=== PATIENT | male | born 1980 | race Caucasian/White ===

== ENCOUNTER 2018-09-23 15:31 | Emergency (ER) | payer SELFPAY | END 2018-09-23 16:15 | disposition left against medical advice (07) | LOC: EMS 15:42 | DX: R51 Headache (principal); Z53.21 Procedure and treatment not carried out due to patient leaving prior to being seen by health care provider ==

== ENCOUNTER 2019-01-29 10:26 | Emergency (ER) | payer MEDICAID ==
[~2019-01-29] VITALS: Ht 172.7 cm; Wt 72.7 kg
[2019-01-29] MEDS ORDERED: DOXYCYCLINE HYCLATE 100 MG CAPSULE PO ONE (11:15)
[2019-01-29] MEDS ORDERED: ACETAMINOPHEN 500 MG TABLET PO ONE (11:15)
[2019-01-29 11:42] VITALS: BP 113/70
== END 2019-01-29 12:30 | disposition home or self-care (01) ==
LOC: EMS 10:27
DX: L03.116 Cellulitis of left lower limb (principal); F17.210 Nicotine dependence, cigarettes, uncomplicated
CPT/HCPCS: 99406

== ENCOUNTER 2021-12-22 12:30 | Emergency (ER) | payer MEDICAID, OTHER ==
[~2021-12-22] VITALS: Ht 172.7 cm; Wt 75.9 kg
[2021-12-22 12:49] VITALS: BP 115/67
[2021-12-22] MEDS ORDERED: DOXY-354 PO (13:21)
[2021-12-22] MEDS ORDERED: ACET-3385 PO (13:21)
[2021-12-22] MEDS ORDERED: DOXYCYCLINE HYCLATE 100 MG TABLET PO ONE (13:30)
[2021-12-22] MEDS ORDERED: ACETAMINOPHEN 500 MG TABLET PO ONE (13:30)
== END 2021-12-22 14:09 | disposition home or self-care (01) ==
LOC: EMS 12:34
DX: L03.115 Cellulitis of right lower limb (principal)
CPT/HCPCS: 99283

== ENCOUNTER 2022-04-21 11:26 | Emergency (ER) | payer OTHER ==
[~2022-04-21 11:26] MED LIST: ACET-3385 PO; DOXY-354 PO
== END 2022-04-21 12:05 | disposition left against medical advice (07) ==
LOC: EMS 11:31
DX: Z53.21 Procedure and treatment not carried out due to patient leaving prior to being seen by health care provider (principal)

== ENCOUNTER 2022-06-21 10:35 | Emergency (ER) | payer OTHER ==
[~2022-06-21] VITALS: Ht 175.3 cm; Wt 78.6 kg
[2022-06-21 11:00] VITALS: BP 122/71
[2022-06-21] MEDS ORDERED: DOXY-354 PO (11:25)
[2022-06-21] MEDS ORDERED: IBUP-1554 PO (11:25)
[2022-06-21] MEDS ORDERED: CEPH-558 PO (11:25)
[2022-06-21] MEDS ORDERED: IBUPROFEN 600 MG TABLET PO ONE (11:30)
[2022-06-21] MEDS ORDERED: DOXYCYCLINE HYCLATE 100 MG TABLET PO ONE (11:30)
[2022-06-21] MEDS ORDERED: CEPHALEXIN MONOHYDRATE 500 MG CAPSULE PO ONE (11:30)
== END 2022-06-21 11:59 | disposition home or self-care (01) ==
LOC: EMS 10:43
DX: J86.9 Pyothorax without fistula (principal)
CPT/HCPCS: 10060; 99284; Z7502; Z7610

== ENCOUNTER 2022-09-11 17:42 | Emergency (ER) | payer OTHER ==
[~2022-09-11 17:42] MED LIST changes: -ACET-3385 PO; +CEPH-558 PO; +IBUP-1554 PO
[2022-09-12] MEDS ORDERED: BACTDSB PO (12:03)
== END 2022-09-11 20:02 | disposition left against medical advice (07) ==
LOC: EMS 17:42
DX: Z53.21 Procedure and treatment not carried out due to patient leaving prior to being seen by health care provider (principal)

== ENCOUNTER 2022-09-12 09:22 | Emergency (ER) | payer OTHER ==
[~2022-09-12] VITALS: Ht 172.7 cm; Wt 79.5 kg
[2022-09-12 09:27] VITALS: BP 135/86
[2022-09-12] MEDS ORDERED: LIDOCAINE 1% 10 ML VIAL SQ ONE (11:30)
[2022-09-12] MEDS ORDERED: BACTDSB PO (12:03)
== END 2022-09-12 12:15 | disposition home or self-care (01) ==
LOC: EMS 09:25
DX: L02.31 Cutaneous abscess of buttock (principal)
CPT/HCPCS: 99283; 10060; J3490